=== PATIENT | male | born 1955 | race Caucasian/White ===

== ENCOUNTER 2017-06-27 16:11 | Emergency (ER) | payer SELFPAY ==
[2017-06-27 17:25] VITALS: RESP 18; TEMP 97.8
[2017-06-27 19:05] VITALS: BP 143/95; PULSE 70; O2SAT 93
== END 2017-06-27 18:30 | disposition home or self-care (01) | DRG 305 ==
LOC: ED 16:11
DX: I10 Essential (primary) hypertension (principal); R05 Cough; R06.02 Shortness of breath
CPT/HCPCS: 71045; 93005; 99283